=== PATIENT | male | born 1935 | race African-American/Black ===

== ENCOUNTER 2020-09-19 22:03 | Inpatient (IN) | payer MEDICARE, OTHER ==
[2020-09-19 23:02] LABS: ALT (SGPT) Less than 7 U/L (8-55); AST (SGOT) 10 U/L (5-34); Albumin 2.7 g/dL (3.4-4.8); Alkaline Phosphatase 62 U/L (40-110); Anion Gap 13 mmol/L (10-20); BUN (Urea Nitrogen) 29 mg/dL (8.4-25.7); Bilirubin, Total 0.5 mg/dL (0.2-1.2); Calc. Creatinine Clearance 0 mL/min (70-130); Calcium 8.3 mg/dL (7.8-10.44); Carbon Dioxide 29 mmol/L (23-31); Chloride 96 mmol/L (98-107); Globulin 2.5 g/dL (2.4-3.5); Glucose 108 mg/dL (83-110); Potassium 3.7 mmol/L (3.5-5.1); Protein, Total 5.2 g/dL (5.8-8.1); Sodium 134 mmol/L (136-145)
[2020-09-19 23:05] LABS: #Eosinphils 0.6 thou/uL (0.0-0.7); #Lymphocytes 1.4 thou/uL (1.20-3.40); #Monocytes 0.8 thou/uL (0.11-0.59); #Neutrophils 3.7 thou/uL (1.40-6.50); %Basophils 0.4 % (0.0-1.0); %Eosinophils 8.9 % (0.0-10.0); %Lymphocytes 21.6 % (21.0-51.0); %Monocytes 12.2 % (0.0-10.0); %Neutrophils 56.8 % (42.0-75.0); INR-International Normal Ratio 1.3; Mean Corpuscular HGB CONC 32.9 g/dL (32.0-36.0); Mean Corpuscular Hemoglobin 29.9 pg (27.0-31.0); Mean Corpuscular Volume 90.9 fL (78.0-98.0); Mean Platelet Volume 10.2 fL (7.4-10.4); Platelet Count 200 thou/uL (130-400); Prothrombin Time 16.4 sec (12.0-14.7); Red Blood Cell (RBC) Count 2.33 mill/uL (4.70-6.10); White Blood Cell (WBC) Count 6.4 thou/uL (4.8-10.8)
[2020-09-19 23:06] LABS: PTT 33.5 sec (22.9-36.1)
[2020-09-19 23:25] LABS: CKMB 0.9 ng/mL (0-6.6)
[2020-09-20 01:55] LABS: Troponin I 0.047 ng/mL (< 0.028)
[2020-09-20] MEDS ORDERED: Acetaminophen 325 MG TAB PO PRN ×2 (03:00→03:56)
[2020-09-20 03:25] VITALS: BMI 22.9
[2020-09-20] MEDS ORDERED: Ondansetron PF 4 MG/2 ML Vial IVP PRN (03:56)
[2020-09-20] MEDS ORDERED: Guaifenesin DM 100-10/5 ML UDCUP PO PRN (03:56)
[2020-09-20] MEDS ORDERED: Promethazine HCl 12.5 MG in Sodium Chloride 0.9% 50 ML IVPB PRN (03:56)
[2020-09-20] MEDS ORDERED: cloNIDine 0.1 MG TAB PO PRN (03:56)
[2020-09-20] MEDS ORDERED: Labetalol HCl 100 MG/20 ML VIAL SLOW IVP PRN (03:56)
[2020-09-20] MEDS ORDERED: HYDROcodone/Acetaminophen 5/325 mg Tablet PO PRN (03:56)
[2020-09-20] MEDS ORDERED: hydrALAZINE 20 MG/ML VIAL SLOW IVP PRN (03:56)
[2020-09-20 05:24] LABS: Troponin I 0.034 ng/mL (< 0.028)
[2020-09-20 06:34] LABS: SARS-CoV-2 NAA Rapid Test Not Detected (NotDetected)
[2020-09-20] MEDS: Carvedilol 3.125 MG TAB PO SCH ×3 (08:35→17:33)
[2020-09-20] MEDS: Famotidine 20 MG TAB PO SCH (08:35)
[2020-09-20] MEDS ORDERED: Heparin 10,000 UNITS/ 10 ML VIAL ONE (09:09)
[2020-09-20 11:17] LABS: Iron 37 ug/dL (65-175); Iron Binding Capacity, Total 195 mcg/dL (261-462)
[2020-09-20] MEDS ORDERED: traMADol HCl 50 MG TAB PO PRN (16:12)
[2020-09-20] MEDS: Docusate 100 MG CAP PO SCH (21:25)
[2020-09-20] MEDS: Gabapentin 300 MG CAP PO SCH (21:25)
[2020-09-20] MEDS: Bumetanide 1 MG TAB PO SCH (21:25)
[2020-09-20] MEDS: Atorvastatin Calcium 40 MG TAB PO SCH (21:25)
[2020-09-20] MEDS: traZODone HCl 50 MG TAB PO SCH (21:26)
[2020-09-20] MEDS: Nortriptyline 10 MG CAP PO SCH (21:33)
[2020-09-21 05:05] LABS: #Eosinphils 0.4 thou/uL (0.0-0.7); #Lymphocytes 1.1 thou/uL (1.20-3.40); #Monocytes 0.7 thou/uL (0.11-0.59); #Neutrophils 4.4 thou/uL (1.40-6.50); %Basophils 0.2 % (0.0-1.0); %Eosinophils 5.6 % (0.0-10.0); %Lymphocytes 16.7 % (21.0-51.0); %Monocytes 11.1 % (0.0-10.0); %Neutrophils 66.4 % (42.0-75.0); Hemoglobin 9.8 g/dL (14.0-18.0); Mean Corpuscular HGB CONC 34.1 g/dL (32.0-36.0); Mean Corpuscular Hemoglobin 30.8 pg (27.0-31.0); Mean Corpuscular Volume 90.5 fL (78.0-98.0); Mean Platelet Volume 10.5 fL (7.4-10.4); Platelet Count 147 thou/uL (130-400); RBC Distribution Width 14.8 % (11.5-14.5); Red Blood Cell (RBC) Count 3.16 mill/uL (4.70-6.10); White Blood Cell (WBC) Count 6.7 thou/uL (4.8-10.8)
[2020-09-21 05:24] LABS: Anion Gap 14 mmol/L (10-20); BUN (Urea Nitrogen) 21 mg/dL (8.4-25.7); Calc. Creatinine Clearance 20 mL/min (70-130); Calcium 8.6 mg/dL (7.8-10.44); Carbon Dioxide 27 mmol/L (23-31); Chloride 98 mmol/L (98-107); Glucose 89 mg/dL (83-110); Magnesium 1.6 mg/dL (1.6-2.6); Potassium 3.5 mmol/L (3.5-5.1); Sodium 135 mmol/L (136-145)
[2020-09-21] MEDS: Bumetanide 1 MG TAB PO SCH (08:52)
[2020-09-21] MEDS: Ferrous Sulfate 325 MG TAB PO SCH (08:52)
[2020-09-21] MEDS: Allopurinol 100 MG TAB PO SCH (08:53)
[2020-09-21] MEDS: Losartan 25 MG TAB PO SCH (08:53)
[2020-09-21] MEDS: Clopidogrel Bisulfate 75 MG TAB PO SCH (08:53)
[2020-09-21] MEDS: Tamsulosin HCl 0.4 MG CAP PO SCH (08:53)
[2020-09-21] MEDS: Famotidine 20 MG TAB PO SCH (08:53)
[2020-09-21] MEDS: Aspirin Chewable 81 MG TAB PO SCH (08:54)
[2020-09-21] MEDS: Carvedilol 3.125 MG TAB PO SCH ×4 (08:54→16:59)
[2020-09-21] MEDS: Loratadine 10 MG TAB PO SCH (08:54)
[2020-09-21] MEDS: Docusate 100 MG CAP PO SCH ×2 (08:54→20:51)
[2020-09-21] MEDS ORDERED: EPOETIN ALFA-EPBX (ESRD) 4,000 UNIT/ML VIAL SC SCH (12:00)
[2020-09-21] MEDS ORDERED: GoLYTELY 4,000 ml Bottle PO SCH (14:00)
[2020-09-21] MEDS: traZODone HCl 50 MG TAB PO SCH (20:49)
[2020-09-21] MEDS: Atorvastatin Calcium 40 MG TAB PO SCH (20:49)
[2020-09-21] MEDS: Gabapentin 300 MG CAP PO SCH (20:49)
[2020-09-21] MEDS: Nortriptyline 10 MG CAP PO SCH (20:49)
[2020-09-22 05:12] LABS: #Eosinphils 0.4 thou/uL (0.0-0.7); #Monocytes 0.6 thou/uL (0.11-0.59); #Neutrophils 3.9 thou/uL (1.40-6.50); %Basophils 0.6 % (0.0-1.0); %Eosinophils 6.4 % (0.0-10.0); %Lymphocytes 17.4 % (21.0-51.0); %Monocytes 9.6 % (0.0-10.0); %Neutrophils 65.9 % (42.0-75.0); Hemoglobin 9.6 g/dL (14.0-18.0); Mean Corpuscular HGB CONC 33.5 g/dL (32.0-36.0); Mean Corpuscular Hemoglobin 30.8 pg (27.0-31.0); Mean Corpuscular Volume 91.7 fL (78.0-98.0); Mean Platelet Volume 10.8 fL (7.4-10.4); Platelet Count 144 thou/uL (130-400); Red Blood Cell (RBC) Count 3.12 mill/uL (4.70-6.10); White Blood Cell (WBC) Count 5.9 thou/uL (4.8-10.8)
[2020-09-22 05:44] LABS: Anion Gap 17 mmol/L (10-20); BUN (Urea Nitrogen) 28 mg/dL (8.4-25.7); Calc. Creatinine Clearance 17 mL/min (70-130); Calcium 8.6 mg/dL (7.8-10.44); Carbon Dioxide 27 mmol/L (23-31); Chloride 97 mmol/L (98-107); Glucose 73 mg/dL (83-110); Magnesium 1.7 mg/dL (1.6-2.6); Potassium 3.6 mmol/L (3.5-5.1); Sodium 137 mmol/L (136-145)
[2020-09-22] MEDS ORDERED: Lidocaine 1% PF 5 ML VIAL ONE (10:08)
[2020-09-22] MEDS ORDERED: PROPOFOL 200 MG/20 ML VIAL ONE (10:08)
[2020-09-22] MEDS ORDERED: traMADol HCl 50 MG TAB PO PRN (10:45)
[2020-09-22] MEDS: Losartan 25 MG TAB PO SCH (13:07)
[2020-09-22] MEDS: Aspirin Chewable 81 MG TAB PO SCH (13:07)
[2020-09-22] MEDS: Famotidine 20 MG TAB PO SCH (13:07)
[2020-09-22] MEDS: Clopidogrel Bisulfate 75 MG TAB PO SCH (13:07)
[2020-09-22] MEDS: Allopurinol 100 MG TAB PO SCH (13:08)
[2020-09-22] MEDS: Carvedilol 3.125 MG TAB PO SCH (13:08)
[2020-09-22] MEDS: Ferrous Sulfate 325 MG TAB PO SCH (13:12)
[2020-09-22] MEDS: Docusate 100 MG CAP PO SCH (13:12)
[2020-09-22] MEDS: Tamsulosin HCl 0.4 MG CAP PO SCH (13:12)
[2020-09-22] MEDS: Loratadine 10 MG TAB PO SCH (13:13)
[2020-09-22 17:04] VITALS: BP 142/82; TEMP 96.8
== END 2020-09-22 17:00 | DRG 811 ==
LOC: ERS 22:03 → 2NO 09-20 00:38
PROVIDERS: ADMIT Internal Medicine; ATTEND Internal Medicine
PROC: 30233N1 Transfusion of Nonautologous Red Blood Cells into Peripheral Vein, Percutaneous Approach (ICD-10-PCS; principal; 2020-09-20)
PROC: 5A1D70Z Performance of Urinary Filtration, Intermittent, Less than 6 Hours Per Day (ICD-10-PCS; 2020-09-20)
PROC: 0DJ08ZZ Inspection of Upper Intestinal Tract, Via Natural or Artificial Opening Endoscopic (ICD-10-PCS; 2020-09-22)
PROC: 0DJD8ZZ Inspection of Lower Intestinal Tract, Via Natural or Artificial Opening Endoscopic (ICD-10-PCS; 2020-09-22)
DX: D51.9 Vitamin B12 deficiency anemia, unspecified (principal); N18.6 End stage renal disease; I13.0 Hypertensive heart and chronic kidney disease with heart failure and stage 1 through stage 4 chronic kidney disease, or unspecified chronic kidney disease; Z20.822 Contact with and (suspected) exposure to COVID-19; K57.30 Diverticulosis of large intestine without perforation or abscess without bleeding; I50.9 Heart failure, unspecified; I25.10 Atherosclerotic heart disease of native coronary artery without angina pectoris; I73.9 Peripheral vascular disease, unspecified; E78.5 Hyperlipidemia, unspecified; D63.1 Anemia in chronic kidney disease; M10.9 Gout, unspecified; Z85.46 Personal history of malignant neoplasm of prostate; Z99.2 Dependence on renal dialysis; Z88.8 Allergy status to other drugs, medicaments and biological substances; Z95.828 Presence of other vascular implants and grafts; Z79.899 Other long term (current) drug therapy; Z79.82 Long term (current) use of aspirin; Z79.02 Long term (current) use of antithrombotics/antiplatelets
CPT/HCPCS: 36415; 36430; 80048; 80053; 82553; 82728; 83540; 83550; 83735; 84484; 85025; 85610; 85730; 86850; 86900; 86901; 90935; 93005; 94760; G0257; J1644; J2704; P9016; Q5105; U0002; U0005

== ENCOUNTER 2020-10-03 17:15 | Inpatient (IN) | payer MEDICARE, OTHER ==
[2020-10-03 18:46] LABS: #Eosinphils 0.5 thou/uL (0.0-0.7); #Lymphocytes 1.1 thou/uL (1.20-3.40); #Monocytes 0.8 thou/uL (0.11-0.59); #Neutrophils 5.6 thou/uL (1.40-6.50); %Lymphocytes 13.3 % (21.0-51.0); %Monocytes 9.8 % (0.0-10.0); %Neutrophils 70.9 % (42.0-75.0); Hemoglobin 10.7 g/dL (14.0-18.0); Mean Corpuscular HGB CONC 32.5 g/dL (32.0-36.0); Mean Corpuscular Hemoglobin 30.5 pg (27.0-31.0); Mean Corpuscular Volume 93.8 fL (78.0-98.0); Platelet Count 123 thou/uL (130-400); Red Blood Cell (RBC) Count 3.51 mill/uL (4.70-6.10); White Blood Cell (WBC) Count 7.9 thou/uL (4.8-10.8)
[2020-10-03 19:10] LABS: ALT (SGPT) Less than 7 U/L (8-55); AST (SGOT) 12 U/L (5-34); Albumin 2.9 g/dL (3.4-4.8); Alkaline Phosphatase 73 U/L (40-110); Anion Gap 19 mmol/L (10-20); BUN (Urea Nitrogen) 28 mg/dL (8.4-25.7); Bilirubin, Total 0.7 mg/dL (0.2-1.2); Calc. Creatinine Clearance 0 mL/min (70-130); Calcium 8.7 mg/dL (7.8-10.44); Carbon Dioxide 24 mmol/L (23-31); Chloride 98 mmol/L (98-107); Globulin 3.2 g/dL (2.4-3.5); Glucose 127 mg/dL (83-110); Potassium 3.9 mmol/L (3.5-5.1); Protein, Total 6.1 g/dL (5.8-8.1); Sodium 137 mmol/L (136-145)
[2020-10-03 21:55] LABS: Clarity Turbid (Clear); Glucose, Urine (Dipstick) Unable to Interpret mg/dL (Negative); Leukocyte Unable to Interpret Leu/uL (Negative); Nitrite Unable to Interpret (Negative); Protein, Urine (Dipstick) Unable to Interpret mg/dL (Neg-Trace); Specific Gravity, Urine 1.016 (1.002-1.036); pH, Urine 6.6 (5.0-9.0)
[2020-10-03 21:56] LABS: Bilirubin Unable to Interpret (Negative); Blood, Urine Unable to Interpret (Negative); Ketone, Urine Unable to Interpret mg/dL (Negative); Urobilinogen UNABLE TO INTERPRET mg/dL (Less than 2)
[2020-10-03 22:00] LABS: RBC/HPF Greater than 50 HPF (0-3); Squamous Epithelial 0-3 HPF (0-3); WBC/HPF Greater than 50 HPF (0-3)
[2020-10-03 22:01] LABS: Bacteria/HPF 2+ HPF (None Seen)
[2020-10-03] MEDS ORDERED: Carvedilol 3.125 MG TAB PO SCH (23:45)
[2020-10-04] MEDS ORDERED: cefTRIAXone\\ROCEPHIN 2 GM VIAL ONE (01:28)
[2020-10-04] MEDS ORDERED: Morphine 2 MG/ML VIAL SLOW IVP PRN (01:41)
[2020-10-04] MEDS ORDERED: Acetaminophen 325 MG TAB PO PRN (01:41)
[2020-10-04] MEDS ORDERED: traMADol HCl 50 MG TAB PO PRN (01:43)
[2020-10-04] MEDS ORDERED: Bisacodyl 5 MG TAB PO PRN (01:44)
[2020-10-04] MEDS ORDERED: Ondansetron PF 4 MG/2 ML Vial IVP PRN (01:44)
[2020-10-04 02:28] LABS: Band 1 % (5-11); Eosinophils 5 % (0-10); Hemoglobin 9.6 g/dL (14.0-18.0); Lymphocytes 17 % (21-51); MDiff Complete? YES; Mean Corpuscular HGB CONC 33.2 g/dL (32.0-36.0); Mean Corpuscular Hemoglobin 30.9 pg (27.0-31.0); Mean Corpuscular Volume 93.1 fL (78.0-98.0); Mean Platelet Volume 10.7 fL (7.4-10.4); Monocytes 8 % (0-10); Neutrophil 69 % (42-75); Platelet Count 116 thou/uL (130-400); Platelet Morphology Comment Appears Decreased; RBC Distribution Width 15.7 % (11.5-14.5); Red Blood Cell (RBC) Count 3.09 mill/uL (4.70-6.10); White Blood Cell (WBC) Count 6.7 thou/uL (4.8-10.8)
[2020-10-04 02:38] VITALS: BMI 23.6
[2020-10-04 02:44] LABS: Albumin 2.8 g/dL (3.4-4.8); Anion Gap 14 mmol/L (10-20); BUN (Urea Nitrogen) 32 mg/dL (8.4-25.7); BUN/Creatinine Ratio 8.86; Calc. Creatinine Clearance 16 mL/min (70-130); Calcium 8.5 mg/dL (7.8-10.44); Carbon Dioxide 29 mmol/L (23-31); Chloride 99 mmol/L (98-107); Glucose 132 mg/dL (83-110); Phosphorus 3.7 mg/dL (2.3-4.7); Potassium 3.4 mmol/L (3.5-5.1); Sodium 139 mmol/L (136-145)
[2020-10-04] MEDS: Carvedilol 3.125 MG TAB PO SCH ×2 (08:00→17:18)
[2020-10-04] MEDS ORDERED: Heparin 10,000 UNITS/ 10 ML VIAL ONE (08:58)
[2020-10-04] MEDS ORDERED: EPOETIN ALFA-EPBX (ESRD) 10,000 UNIT/ML VIAL SC SCH (10:30)
[2020-10-04] MEDS: Ferrous Sulfate 325 MG TAB PO SCH (14:16)
[2020-10-04] MEDS: Folic Acid 1 MG TAB PO SCH (14:16)
[2020-10-04] MEDS: Docusate 100 MG CAP PO SCH ×2 (14:17→19:26)
[2020-10-04] MEDS: Losartan 25 MG TAB PO SCH (14:17)
[2020-10-04] MEDS: Tamsulosin HCl 0.4 MG CAP PO SCH (14:17)
[2020-10-04] MEDS: Bumetanide 1 MG TAB PO SCH ×2 (14:18→19:26)
[2020-10-04] MEDS: Famotidine 20 MG TAB PO SCH (14:19)
[2020-10-04] MEDS ORDERED: EPOETIN ALFA-EPBX (NON-ESRD) 10,000 UNIT/ML VIAL ONE (14:35)
[2020-10-04 15:38] LABS: Hemoglobin 10.2 g/dL (14.0-18.0)
[2020-10-04 15:44] LABS: SARS-CoV-2 PCR by NAA Not Detected (NotDetected)
[2020-10-04] MEDS: traZODone HCl 50 MG TAB PO SCH (19:26)
[2020-10-04] MEDS: Atorvastatin Calcium 40 MG TAB PO SCH (19:26)
[2020-10-05] MEDS: cefTRIAXone\\ROCEPHIN 1 GM in Sodium Chloride 0.9% 100 ML IVPB SCH (01:32)
[2020-10-05 04:45] LABS: #Eosinphils 0.5 thou/uL (0.0-0.7); #Lymphocytes 1.1 thou/uL (1.20-3.40); #Monocytes 0.6 thou/uL (0.11-0.59); #Neutrophils 3.7 thou/uL (1.40-6.50); %Basophils 0.2 % (0.0-1.0); %Eosinophils 7.8 % (0.0-10.0); %Lymphocytes 18.7 % (21.0-51.0); %Monocytes 10.1 % (0.0-10.0); %Neutrophils 63.2 % (42.0-75.0); Hemoglobin 9.7 g/dL (14.0-18.0); Mean Corpuscular HGB CONC 31.8 g/dL (32.0-36.0); Mean Corpuscular Volume 94.2 fL (78.0-98.0); Mean Platelet Volume 11.3 fL (7.4-10.4); Platelet Count 103 thou/uL (130-400); RBC Distribution Width 15.9 % (11.5-14.5); Red Blood Cell (RBC) Count 3.25 mill/uL (4.70-6.10); White Blood Cell (WBC) Count 5.8 thou/uL (4.8-10.8)
[2020-10-05 04:55] LABS: Anion Gap 16 mmol/L (10-20); BUN (Urea Nitrogen) 20 mg/dL (8.4-25.7); Calc. Creatinine Clearance 21 mL/min (70-130); Calcium 8.6 mg/dL (7.8-10.44); Carbon Dioxide 28 mmol/L (23-31); Chloride 101 mmol/L (98-107); Glucose 108 mg/dL (83-110); Potassium 3.6 mmol/L (3.5-5.1); Sodium 141 mmol/L (136-145)
[2020-10-05] MEDS: Docusate 100 MG CAP PO SCH ×2 (09:04→19:41)
[2020-10-05] MEDS: Ferrous Sulfate 325 MG TAB PO SCH (09:04)
[2020-10-05] MEDS: Bumetanide 1 MG TAB PO SCH ×2 (09:04→19:41)
[2020-10-05] MEDS: Carvedilol 3.125 MG TAB PO SCH ×2 (09:04→18:05)
[2020-10-05] MEDS: Losartan 25 MG TAB PO SCH (09:05)
[2020-10-05] MEDS: Famotidine 20 MG TAB PO SCH (09:05)
[2020-10-05] MEDS: Tamsulosin HCl 0.4 MG CAP PO SCH (09:05)
[2020-10-05] MEDS: Folic Acid 1 MG TAB PO SCH (09:05)
[2020-10-05 13:50] LABS: Hemoglobin 10.7 g/dL (14.0-18.0)
[2020-10-05] MEDS ORDERED: Bumetanide 1 MG/4 ML VIAL IVP SCH (14:45)
[2020-10-05] MEDS: traZODone HCl 50 MG TAB PO SCH (19:41)
[2020-10-05] MEDS: Atorvastatin Calcium 40 MG TAB PO SCH (19:41)
[2020-10-05 20:02] VITALS: TEMP 98.1
[2020-10-06] MEDS: cefTRIAXone\\ROCEPHIN 1 GM in Sodium Chloride 0.9% 100 ML IVPB SCH (01:06)
[2020-10-06] MEDS: Losartan 25 MG TAB PO SCH (08:42)
[2020-10-06] MEDS: Tamsulosin HCl 0.4 MG CAP PO SCH (08:43)
[2020-10-06] MEDS: Ferrous Sulfate 325 MG TAB PO SCH (08:43)
[2020-10-06] MEDS: Docusate 100 MG CAP PO SCH (08:43)
[2020-10-06] MEDS: Famotidine 20 MG TAB PO SCH (08:44)
[2020-10-06] MEDS: Bumetanide 1 MG TAB PO SCH (08:44)
[2020-10-06] MEDS: Folic Acid 1 MG TAB PO SCH (08:44)
[2020-10-06] MEDS: Carvedilol 3.125 MG TAB PO SCH (08:44)
[2020-10-06] MEDS ORDERED: Clopidogrel Bisulfate 75 MG TAB PO SCH (09:00)
[2020-10-06] MEDS ORDERED: Mecobalamin [B12 Active] 1,000 MCG Tab.Chew PO SCH (09:00)
[2020-10-06] MEDS ORDERED: Allopurinol 100 MG TAB PO SCH (09:00)
[2020-10-06] MEDS ORDERED: Loratadine 10 MG TAB PO SCH (09:00)
[2020-10-06 12:25] VITALS: BP 156/92
[2020-10-06] MEDS ORDERED: Gabapentin 300 MG CAP PO SCH (21:00)
== END 2020-10-06 15:30 | DRG 698 ==
LOC: ERS 17:15 → ONC 10-04 01:02
PROVIDERS: ADMIT Internal Medicine; ATTEND Hospitalist
PROC: 5A1D70Z Performance of Urinary Filtration, Intermittent, Less than 6 Hours Per Day (ICD-10-PCS; principal; 2020-10-04)
DX: N30.41 Irradiation cystitis with hematuria (principal); N18.6 End stage renal disease; J90 Pleural effusion, not elsewhere classified; I12.0 Hypertensive chronic kidney disease with stage 5 chronic kidney disease or end stage renal disease; E78.5 Hyperlipidemia, unspecified; I25.10 Atherosclerotic heart disease of native coronary artery without angina pectoris; D63.1 Anemia in chronic kidney disease; I73.9 Peripheral vascular disease, unspecified; Z88.8 Allergy status to other drugs, medicaments and biological substances; Z86.73 Personal history of transient ischemic attack (TIA), and cerebral infarction without residual deficits; Z79.82 Long term (current) use of aspirin; Z79.899 Other long term (current) drug therapy
CPT/HCPCS: 36415; 71045; 74176; 80048; 80053; 80069; 81003; 81015; 83605; 85014; 85018; 85025; 87040; 87086; 87149; 90935; 96374; G0257; J0696; J1644; J3490; Q5105; U0003; U0005

== ENCOUNTER 2021-01-01 10:42 | Inpatient (IN) | payer MEDICARE, OTHER ==
[~2021-01-01 10:42] MED LIST: Heparin 10,000 UNITS/ 10 ML VIAL ONE
[2021-01-01] MEDS ORDERED: Propofol 1,000 MG/100 ML VIAL IV ONE (11:00)
[2021-01-01] MEDS ORDERED: PROPOFOL 0 ML ONE (11:00)
[2021-01-01 11:13] LABS: #Eosinphils 0.5 thou/uL (0.0-0.7); #Monocytes 0.6 thou/uL (0.11-0.59); #Neutrophils 3.1 thou/uL (1.40-6.50); %Basophils 0.6 % (0.0-1.0); %Eosinophils 9.1 % (0.0-10.0); %Lymphocytes 19.2 % (21.0-51.0); %Monocytes 10.8 % (0.0-10.0); %Neutrophils 60.3 % (42.0-75.0); Hemoglobin 10.9 g/dL (14.0-18.0); Mean Corpuscular HGB CONC 32.4 g/dL (32.0-36.0); Mean Corpuscular Hemoglobin 31.6 pg (27.0-31.0); Mean Corpuscular Volume 97.4 fL (78.0-98.0); Mean Platelet Volume 10.5 fL (7.4-10.4); Platelet Count 90 thou/uL (130-400); RBC Distribution Width 14.6 % (11.5-14.5); Red Blood Cell (RBC) Count 3.46 mill/uL (4.70-6.10); White Blood Cell (WBC) Count 5.2 thou/uL (4.8-10.8)
[2021-01-01] MEDS ORDERED: fentaNYL Citrate/PF 2,000 MCG in Sodium Chloride 0.9% 60 ML IV SCH (11:15)
[2021-01-01 11:21] LABS: Analyzer IN Cardio ER; Base Excess (BEa) -3.5 mEq/L (-2.0 to +3.0); CO2 Tension 36.1 mmHg (35.0-45.0); Calcium, Ionized (arterial) 1.09 mmol/L (1.12-1.30); Carboxyhemoglobin (COHb) 0.3 gm% (0.0-3.0); Hemoglobin (Hb) 11.4 g/dL (14.0-18.0); O2 Tension (PaO2), arterial 469.8 mmHg (> 60.0); Potassium - ABG Lab 3.89 mmol/L (3.70-5.30); pH, Arterial 7.38 (7.35-7.45)
[2021-01-01 11:22] LABS: ALV-art Gradient 198.075 mmHg (0-20); Puncture Site RRA
[2021-01-01 11:29] LABS: INR-International Normal Ratio 1.5; Prothrombin Time 18.4 sec (12.0-14.7)
[2021-01-01 11:30] LABS: PTT 63.7 sec (22.9-36.1)
[2021-01-01 11:35] LABS: Bilirubin Negative (Negative); Blood, Urine 1+ (Negative); Clarity Extra Turbid (Clear); Glucose, Urine (Dipstick) Normal (Negative); Ketone, Urine Negative (Negative); Leukocyte 500 Leu/uL (Negative); Nitrite Negative (Negative); Protein, Urine (Dipstick) 300 mg/dL (Neg-Trace); Specific Gravity, Urine 1.014 (1.002-1.036); Urobilinogen Normal mg/dL (Less than 2); pH, Urine 5.5 (5.0-9.0)
[2021-01-01 11:43] LABS: Bacteria/HPF 1+ HPF (None Seen); WBC/HPF 21-50 HPF (0-3)
[2021-01-01 11:54] LABS: CKMB 1.7 ng/mL (0-6.6)
[2021-01-01 12:04] LABS: Albumin 2.5 g/dL (3.4-4.8)
[2021-01-01 12:05] LABS: Chloride 106 mmol/L (98-107); Potassium 4.2 mmol/L (3.5-5.1); Sodium 143 mmol/L (136-145)
[2021-01-01 12:06] LABS: Calcium 8.3 mg/dL (7.8-10.44); Globulin 2.4 g/dL (2.4-3.5); Glucose 78 mg/dL (83-110); Protein, Total 4.9 g/dL (5.8-8.1)
[2021-01-01 12:08] LABS: Anion Gap 20 mmol/L (10-20); Bilirubin, Total 0.5 mg/dL (0.2-1.2); Carbon Dioxide 21 mmol/L (23-31)
[2021-01-01] MEDS ORDERED: cefTRIAXone\\ROCEPHIN 2 GM VIAL ONE (12:08)
[2021-01-01 12:09] LABS: Alkaline Phosphatase 50 U/L (40-110)
[2021-01-01 12:10] LABS: BUN (Urea Nitrogen) 91 mg/dL (8.4-25.7); Calc. Creatinine Clearance 0 mL/min (70-130)
[2021-01-01 12:11] LABS: AST (SGOT) 5 U/L (5-34)
[2021-01-01 12:12] LABS: ALT (SGPT) Less than 7 U/L (8-55)
[2021-01-01 12:13] LABS: SARS-CoV-2 NAA Rapid Test Not Detected (NotDetected)
[2021-01-01] MEDS ORDERED: Ondansetron PF 4 MG/2 ML Vial IVP PRN (14:05)
[2021-01-01] MEDS ORDERED: Ventilator Sedation Protocol 1 EACH FS PRN (14:15)
[2021-01-01 14:32] LABS: Troponin I 0.027 ng/mL (< 0.028)
[2021-01-01] MEDS ORDERED: Midazolam HCl 2 mg/2 ml Vial ONE (14:40)
[2021-01-01] MEDS ORDERED: Propofol BOLUS 1,000 MG/100 ML VIAL IV PRN (14:45)
[2021-01-01] MEDS ORDERED: Fentanyl CADD 100 ML IV SCH (14:45)
[2021-01-01] MEDS ORDERED: Fentanyl BOLUS 250 ML IVPB PRN (14:45)
[2021-01-01] MEDS ORDERED: Lorazepam 2 MG/ML VIAL SLOW IVP PRN (14:45)
[2021-01-01] MEDS ORDERED: Morphine 2 MG/ML VIAL SLOW IVP PRN (14:45)
[2021-01-01] MEDS ORDERED: DISCONTINUE PREVIOUS NARCOTIC PAIN MEDICATIONS AND BENZODIAZEPINES FS SCH (14:45)
[2021-01-01] MEDS ORDERED: Propofol 1,000 MG/100 ML VIAL IV PRN (14:45)
[2021-01-01] MEDS ORDERED: Ondansetron ODT 4 MG TAB PO PRN (17:13)
[2021-01-01] MEDS ORDERED: Acetaminophen 325 MG TAB PO PRN (17:15)
[2021-01-01 17:22] LABS: Troponin I 0.053 ng/mL (< 0.028)
[2021-01-01] MEDS: Atorvastatin Calcium 40 MG TAB PO SCH (21:29)
[2021-01-01] MEDS: Famotidine/PF 20 mg/2ml Vial SLOW IVP SCH (21:29)
[2021-01-01] MEDS: Carvedilol 3.125 MG TAB PO SCH (21:29)
[2021-01-01] MEDS: metroNIDAZOLE 500 MG in Premix Bag 1 BAG IVPB SCH (21:30)
[2021-01-02 04:16] LABS: #Eosinphils 0.2 thou/uL (0.0-0.7); #Lymphocytes 0.9 thou/uL (1.20-3.40); #Monocytes 0.6 thou/uL (0.11-0.59); #Neutrophils 5.1 thou/uL (1.40-6.50); %Basophils 0.4 % (0.0-1.0); %Eosinophils 2.6 % (0.0-10.0); %Lymphocytes 13.3 % (21.0-51.0); %Monocytes 8.3 % (0.0-10.0); %Neutrophils 75.4 % (42.0-75.0); Hemoglobin 13.7 g/dL (14.0-18.0); Mean Corpuscular HGB CONC 33.7 g/dL (32.0-36.0); Mean Corpuscular Hemoglobin 31.6 pg (27.0-31.0); Mean Corpuscular Volume 93.9 fL (78.0-98.0); Platelet Count 92 thou/uL (130-400); RBC Distribution Width 15.2 % (11.5-14.5); Red Blood Cell (RBC) Count 4.32 mill/uL (4.70-6.10); White Blood Cell (WBC) Count 6.7 thou/uL (4.8-10.8)
[2021-01-02 04:23] LABS: ALT (SGPT) Less than 7 U/L (8-55); AST (SGOT) 7 U/L (5-34); Albumin 2.8 g/dL (3.4-4.8); Alkaline Phosphatase 65 U/L (40-110); Anion Gap 21 mmol/L (10-20); BUN (Urea Nitrogen) 54 mg/dL (8.4-25.7); Bilirubin, Total 0.8 mg/dL (0.2-1.2); Calc. Creatinine Clearance 10 mL/min (70-130); Carbon Dioxide 23 mmol/L (23-31); Chloride 102 mmol/L (98-107); Globulin 2.9 g/dL (2.4-3.5); Glucose 69 mg/dL (83-110); Phosphorus 5.9 mg/dL (2.3-4.7); Potassium 3.6 mmol/L (3.5-5.1); Protein, Total 5.7 g/dL (5.8-8.1); Sodium 142 mmol/L (136-145)
[2021-01-02] MEDS: metroNIDAZOLE 500 MG in Premix Bag 1 BAG IVPB SCH ×3 (06:19→22:36)
[2021-01-02 07:14] LABS: Actual Bicarbonate (HCO3a) 20.8 mEq/L (22-28); Base Excess (BEa) 0.4 mEq/L (-2.0 to +3.0); Carboxyhemoglobin (COHb) 0.6 gm% (0.0-3.0); Hemoglobin (Hb) 13.5 g/dL (14.0-18.0); O2 Tension (PaO2), arterial 131.1 mmHg (> 60.0); Potassium - ABG Lab 3.36 mmol/L (3.70-5.30)
[2021-01-02 07:15] LABS: ALV-art Gradient 124.725 mmHg (0-20); CO2 Tension 23.5 mmHg (35.0-45.0); Puncture Site RRA; pH, Arterial 7.57 (7.35-7.45)
[2021-01-02] MEDS: Heparin 5,000 UNITS/ML VIAL SC SCH ×4 (07:26→21:40)
[2021-01-02] MEDS: cefTRIAXone\\ROCEPHIN 1 GM in Sodium Chloride 0.9% 100 ML IVPB SCH (07:52)
[2021-01-02] MEDS: Carvedilol 3.125 MG TAB PO SCH ×2 (08:44→21:40)
[2021-01-02] MEDS: Aspirin Chewable 81 MG TAB PO SCH (08:44)
[2021-01-02] MEDS: Famotidine/PF 20 mg/2ml Vial SLOW IVP SCH (08:44)
[2021-01-02] MEDS: Folic Acid 1 MG TAB PO SCH (08:44)
[2021-01-02] MEDS: Allopurinol 100 MG TAB PO SCH (08:44)
[2021-01-02] MEDS: Clopidogrel Bisulfate 75 MG TAB PO SCH (08:44)
[2021-01-02] MEDS ORDERED: Heparin 10,000 UNITS/ 10 ML VIAL ONE (09:30)
[2021-01-02] MEDS: Atorvastatin Calcium 40 MG TAB PO SCH (21:40)
[2021-01-03] MEDS: cefTRIAXone\\ROCEPHIN 1 GM in Sodium Chloride 0.9% 100 ML IVPB SCH (07:15)
[2021-01-03 08:25] LABS: #Eosinphils 0.3 thou/uL (0.0-0.7); #Lymphocytes 0.9 thou/uL (1.20-3.40); #Monocytes 0.8 thou/uL (0.11-0.59); #Neutrophils 4.4 thou/uL (1.40-6.50); %Basophils 0.2 % (0.0-1.0); %Lymphocytes 14.1 % (21.0-51.0); %Neutrophils 68.7 % (42.0-75.0); Hemoglobin 14.8 g/dL (14.0-18.0); Mean Corpuscular HGB CONC 32.1 g/dL (32.0-36.0); Mean Corpuscular Hemoglobin 30.7 pg (27.0-31.0); Mean Corpuscular Volume 95.8 fL (78.0-98.0); Mean Platelet Volume 11.3 fL (7.4-10.4); Platelet Count 78 thou/uL (130-400); RBC Distribution Width 14.7 % (11.5-14.5); White Blood Cell (WBC) Count 6.4 thou/uL (4.8-10.8)
[2021-01-03 08:37] LABS: ALT (SGPT) Less than 7 U/L (8-55); AST (SGOT) 8 U/L (5-34); Albumin 2.6 g/dL (3.4-4.8); Alkaline Phosphatase 67 U/L (40-110); Anion Gap 19 mmol/L (10-20); BUN (Urea Nitrogen) 39 mg/dL (8.4-25.7); Bilirubin, Total 0.8 mg/dL (0.2-1.2); Calc. Creatinine Clearance 12 mL/min (70-130); Calcium 8.6 mg/dL (7.8-10.44); Carbon Dioxide 23 mmol/L (23-31); Chloride 102 mmol/L (98-107); Globulin 2.9 g/dL (2.4-3.5); Glucose 76 mg/dL (83-110); Phosphorus 6.8 mg/dL (2.3-4.7); Potassium 4.2 mmol/L (3.5-5.1); Protein, Total 5.5 g/dL (5.8-8.1); Sodium 140 mmol/L (136-145)
[2021-01-03] MEDS: Heparin 5,000 UNITS/ML VIAL SC SCH ×3 (08:56→20:21)
[2021-01-03] MEDS: Aspirin Chewable 81 MG TAB PO SCH (08:57)
[2021-01-03] MEDS: Clopidogrel Bisulfate 75 MG TAB PO SCH (08:57)
[2021-01-03] MEDS: Carvedilol 3.125 MG TAB PO SCH ×2 (08:57→20:21)
[2021-01-03] MEDS: Allopurinol 100 MG TAB PO SCH (08:57)
[2021-01-03] MEDS: Folic Acid 1 MG TAB PO SCH (08:57)
[2021-01-03] MEDS: Famotidine/PF 20 mg/2ml Vial SLOW IVP SCH (08:57)
[2021-01-03] MEDS: metroNIDAZOLE 500 MG in Premix Bag 1 BAG IVPB SCH ×3 (08:58→21:01)
[2021-01-03] MEDS ORDERED: Heparin 10,000 UNITS/ 10 ML VIAL ONE (09:25)
[2021-01-03 11:37] VITALS: BP 169/83
[2021-01-03] MEDS: Atorvastatin Calcium 40 MG TAB PO SCH (20:21)
[2021-01-04 06:09] LABS: #Eosinphils 0.2 thou/uL (0.0-0.7); #Lymphocytes 0.9 thou/uL (1.20-3.40); #Monocytes 0.8 thou/uL (0.11-0.59); #Neutrophils 4.9 thou/uL (1.40-6.50); %Eosinophils 3.4 % (0.0-10.0); %Monocytes 11.7 % (0.0-10.0); Mean Corpuscular HGB CONC 32.2 g/dL (32.0-36.0); Mean Corpuscular Hemoglobin 31.1 pg (27.0-31.0); Mean Corpuscular Volume 96.4 fL (78.0-98.0); Platelet Count 88 thou/uL (130-400); RBC Distribution Width 14.5 % (11.5-14.5); Red Blood Cell (RBC) Count 4.19 mill/uL (4.70-6.10); White Blood Cell (WBC) Count 6.8 thou/uL (4.8-10.8)
[2021-01-04] MEDS: metroNIDAZOLE 500 MG in Premix Bag 1 BAG IVPB SCH ×2 (06:17→14:25)
[2021-01-04 06:29] LABS: ALT (SGPT) Less than 7 U/L (8-55); AST (SGOT) 13 U/L (5-34); Albumin 2.9 g/dL (3.4-4.8); Alkaline Phosphatase 62 U/L (40-110); Anion Gap 18 mmol/L (10-20); BUN (Urea Nitrogen) 27 mg/dL (8.4-25.7); Calc. Creatinine Clearance 14 mL/min (70-130); Carbon Dioxide 24 mmol/L (23-31); Chloride 103 mmol/L (98-107); Globulin 3.2 g/dL (2.4-3.5); Glucose 70 mg/dL (83-110); Phosphorus 5.7 mg/dL (2.3-4.7); Potassium 4.1 mmol/L (3.5-5.1); Protein, Total 6.1 g/dL (5.8-8.1); Sodium 141 mmol/L (136-145)
[2021-01-04] MEDS: cefTRIAXone\\ROCEPHIN 1 GM in Sodium Chloride 0.9% 100 ML IVPB SCH (07:17)
[2021-01-04] MEDS ORDERED: Ferrous Sulfate 325 MG TAB PO SCH (08:00)
[2021-01-04] MEDS: Allopurinol 100 MG TAB PO SCH (08:41)
[2021-01-04] MEDS: Clopidogrel Bisulfate 75 MG TAB PO SCH (08:41)
[2021-01-04] MEDS: Aspirin Chewable 81 MG TAB PO SCH (08:41)
[2021-01-04] MEDS: Folic Acid 1 MG TAB PO SCH (08:42)
[2021-01-04] MEDS: Heparin 5,000 UNITS/ML VIAL SC SCH ×2 (08:42→14:25)
[2021-01-04] MEDS: Famotidine/PF 20 mg/2ml Vial SLOW IVP SCH (08:42)
[2021-01-04] MEDS: Carvedilol 3.125 MG TAB PO SCH (08:42)
[2021-01-04] MEDS ORDERED: Fluticasone Propionate Nasal Spray 16 gm Bottle NASAL SCH (09:00)
[2021-01-04] MEDS ORDERED: Cyanocobalamin (Vitamin B-12) 1,000 MCG TAB PO SCH (09:00)
[2021-01-04 16:26] VITALS: TEMP 98.2
== END 2021-01-04 16:45 | DRG 208 ==
LOC: ERS 10:42 → ERHOLD 12:31 → CCU 15:07
PROVIDERS: ADMIT Internal Medicine; ATTEND Family Medicine
PROC: 5A1945Z Respiratory Ventilation, 24-96 Consecutive Hours (ICD-10-PCS; principal; 2021-01-01)
PROC: 0D9670Z Drainage of Stomach with Drainage Device, Via Natural or Artificial Opening (ICD-10-PCS; 2021-01-01)
PROC: 5A1D70Z Performance of Urinary Filtration, Intermittent, Less than 6 Hours Per Day (ICD-10-PCS; 2021-01-01)
DX: J96.01 Acute respiratory failure with hypoxia (principal); N18.6 End stage renal disease; G92.8 Other toxic encephalopathy; I42.9 Cardiomyopathy, unspecified; I13.2 Hypertensive heart and chronic kidney disease with heart failure and with stage 5 chronic kidney disease, or end stage renal disease; N30.00 Acute cystitis without hematuria; E87.70 Fluid overload, unspecified; Z20.822 Contact with and (suspected) exposure to COVID-19; I25.10 Atherosclerotic heart disease of native coronary artery without angina pectoris; I73.9 Peripheral vascular disease, unspecified; R94.31 Abnormal electrocardiogram [ECG] [EKG]; C61 Malignant neoplasm of prostate; I50.9 Heart failure, unspecified; E78.5 Hyperlipidemia, unspecified; D63.1 Anemia in chronic kidney disease; T40.415A Adverse effect of fentanyl or fentanyl analogs, initial encounter; T42.4X5A Adverse effect of benzodiazepines, initial encounter; L89.152 Pressure ulcer of sacral region, stage 2; E83.39 Other disorders of phosphorus metabolism; Z88.8 Allergy status to other drugs, medicaments and biological substances; Z78.1 Physical restraint status; Z98.890 Other specified postprocedural states; Z79.82 Long term (current) use of aspirin; Z79.899 Other long term (current) drug therapy; Z79.01 Long term (current) use of anticoagulants; Z99.2 Dependence on renal dialysis; Z86.73 Personal history of transient ischemic attack (TIA), and cerebral infarction without residual deficits
CPT/HCPCS: 0240U; 31500; 36415; 36600; 51702; 71045; 71046; 80053; 81003; 81015; 82553; 82805; 83605; 83735; 84100; 84484; 85025; 85610; 85730; 87086; 90935; 93005; 93306; 94002; 94003; 96365; 96366; 96375; 99292; G0257; J0696; J1644; J2250; J2704; J3010; J3490; S0028

== ENCOUNTER 2021-01-13 11:25 | Inpatient (IN) | payer MEDICARE, OTHER ==
[2021-01-13 12:54] LABS: #Eosinphils 0.3 thou/uL (0.0-0.7); #Lymphocytes 0.6 thou/uL (1.20-3.40); #Monocytes 0.6 thou/uL (0.11-0.59); #Neutrophils 2.3 thou/uL (1.40-6.50); %Basophils 0.3 % (0.0-1.0); %Eosinophils 8.5 % (0.0-10.0); %Lymphocytes 14.6 % (21.0-51.0); %Monocytes 14.8 % (0.0-10.0); %Neutrophils 61.8 % (42.0-75.0); Hemoglobin 10.5 g/dL (14.0-18.0); Mean Corpuscular HGB CONC 32.4 g/dL (32.0-36.0); Mean Corpuscular Hemoglobin 31.2 pg (27.0-31.0); Mean Corpuscular Volume 96.2 fL (78.0-98.0); Mean Platelet Volume 11.3 fL (7.4-10.4); Platelet Count 94 thou/uL (130-400); Red Blood Cell (RBC) Count 3.37 mill/uL (4.70-6.10); White Blood Cell (WBC) Count 3.7 thou/uL (4.8-10.8)
[2021-01-13 13:08] LABS: ALT (SGPT) Less than 7 U/L (8-55); AST (SGOT) 6 U/L (5-34); Albumin 2.3 g/dL (3.4-4.8); Alkaline Phosphatase 49 U/L (40-110); Anion Gap 10 mmol/L (10-20); BUN (Urea Nitrogen) 12 mg/dL (8.4-25.7); Bilirubin, Total 1.1 mg/dL (0.2-1.2); CK (CPK) 32 U/L (30-200); Calc. Creatinine Clearance 0 mL/min (70-130); Calcium 6.6 mg/dL (7.8-10.44); Carbon Dioxide 24 mmol/L (23-31); Chloride 108 mmol/L (98-107); Globulin 2.2 g/dL (2.4-3.5); Glucose 86 mg/dL (83-110); Protein, Total 4.5 g/dL (5.8-8.1); Sodium 139 mmol/L (136-145)
[2021-01-13 13:15] LABS: Potassium 2.6 mmol/L (3.5-5.1)
[2021-01-13 13:46] LABS: CKMB 1.3 ng/mL (0-6.6)
[2021-01-13 13:58] LABS: Bilirubin Negative (Negative); Blood, Urine 3+ (Negative); Clarity Turbid (Clear); Glucose, Urine (Dipstick) 70 mg/dL (Negative); Ketone, Urine Negative (Negative); Leukocyte 250 Leu/uL (Negative); Nitrite Negative (Negative); Protein, Urine (Dipstick) 600 mg/dL (Neg-Trace); RBC/HPF Greater than 50 HPF (0-3); Specific Gravity, Urine 1.018 (1.002-1.036); Urobilinogen Normal mg/dL (Less than 2); WBC/HPF Greater than 50 HPF (0-3)
[2021-01-13 13:59] LABS: Bacteria/HPF 1+ HPF (None Seen)
[2021-01-13] MEDS ORDERED: Potassium Chloride 20 MEQ TAB ONE (17:24)
[2021-01-13] MEDS ORDERED: Magnesium 2 GM/50 ML BAG (IN WATER) ONE (17:24)
[2021-01-13] MEDS ORDERED: cefTRIAXone\\ROCEPHIN 2 GM VIAL ONE (17:24)
[2021-01-13] MEDS ORDERED: HYDROcodone/Acetaminophen 7.5/325 mg Tablet PO PRN (17:54)
[2021-01-13] MEDS ORDERED: Senokot S 8.6-50 MG TAB PO PRN (17:54)
[2021-01-13] MEDS ORDERED: Acetaminophen 325 MG TAB PO PRN (17:54)
[2021-01-13] MEDS ORDERED: Ondansetron PF 4 MG/2 ML Vial IVP PRN (17:54)
[2021-01-13] MEDS ORDERED: Bisacodyl 5 MG TAB PO PRN (17:54)
[2021-01-13 18:02] LABS: Magnesium 1.8 mg/dL (1.6-2.6)
[2021-01-13 18:09] LABS: Troponin I 0.052 ng/mL (< 0.028)
[2021-01-13] MEDS ORDERED: Electrolyte Replacement Protocol 1 EACH FS SCH (18:15)
[2021-01-13] MEDS ORDERED: Electrolyte Replacement Protocol FS PRN (20:00)
[2021-01-13] MEDS ORDERED: Famotidine/PF 20 mg/2ml Vial ONE (20:57)
[2021-01-13 20:59] LABS: Troponin I 0.056 ng/mL (< 0.028)
[2021-01-13] MEDS: Heparin 5,000 UNITS/ML VIAL SC SCH (21:02)
[2021-01-13] MEDS: Famotidine/PF 20 mg/2ml Vial SLOW IVP SCH (21:02)
[2021-01-14 02:14] LABS: Anion Gap 17 mmol/L (10-20); BUN (Urea Nitrogen) 24 mg/dL (8.4-25.7); Calc. Creatinine Clearance 0 mL/min (70-130); Calcium 9.1 mg/dL (7.8-10.44); Carbon Dioxide 25 mmol/L (23-31); Chloride 99 mmol/L (98-107); Glucose 90 mg/dL (83-110); Potassium 3.9 mmol/L (3.5-5.1); Sodium 137 mmol/L (136-145)
[2021-01-14 06:22] LABS: ALT (SGPT) Less than 7 U/L (8-55); AST (SGOT) 9 U/L (5-34); Albumin 3.2 g/dL (3.4-4.8); Alkaline Phosphatase 65 U/L (40-110); Anion Gap 20 mmol/L (10-20); BUN (Urea Nitrogen) 24 mg/dL (8.4-25.7); Bilirubin, Total 1.2 mg/dL (0.2-1.2); Calc. Creatinine Clearance 0 mL/min (70-130); Calcium 9.1 mg/dL (7.8-10.44); Carbon Dioxide 21 mmol/L (23-31); Chloride 100 mmol/L (98-107); Globulin 3.1 g/dL (2.4-3.5); Glucose 94 mg/dL (83-110); Potassium 4.1 mmol/L (3.5-5.1); Protein, Total 6.3 g/dL (5.8-8.1); Sodium 137 mmol/L (136-145)
[2021-01-14] MEDS: Heparin 5,000 UNITS/ML VIAL SC SCH ×2 (08:21→21:51)
[2021-01-14] MEDS ORDERED: Clopidogrel Bisulfate 75 MG TAB PO SCH (10:00)
[2021-01-14] MEDS ORDERED: Aspirin 81 mg Enteric Coated Tablet PO SCH (10:00)
[2021-01-14 11:31] LABS: Hemoglobin 12.9 g/dL (14.0-18.0); Mean Corpuscular HGB CONC 32.9 g/dL (32.0-36.0); Mean Corpuscular Hemoglobin 31.9 pg (27.0-31.0); Mean Corpuscular Volume 96.8 fL (78.0-98.0); Mean Platelet Volume 12.1 fL (7.4-10.4); Platelet Count 98 thou/uL (130-400); RBC Distribution Width 14.4 % (11.5-14.5); Red Blood Cell (RBC) Count 4.03 mill/uL (4.70-6.10)
[2021-01-14 11:32] LABS: Lactic Acid 1.6 mmol/L (0.5-2.2)
[2021-01-14 11:53] LABS: #Eosinphils 0.1 thou/uL (0.0-0.7); #Monocytes 0.7 thou/uL (0.11-0.59); #Neutrophils 4.2 thou/uL (1.40-6.50); %Basophils 0.2 % (0.0-1.0); %Lymphocytes 15.9 % (21.0-51.0); %Monocytes 11.4 % (0.0-10.0); %Neutrophils 70.5 % (42.0-75.0); Band 1 % (5-11); Lymphocytes 14 % (21-51); MDiff Complete? YES; Monocytes 13 % (0-10); Neutrophil 72 % (42-75); Platelet Morphology Comment Appears Decreased; RBC Morphology Normal
[2021-01-14 12:43] VITALS: BMI 19.0
[2021-01-14] MEDS: Azithromycin 500 MG in Sodium Chloride 0.9% 250 ML 250 ML IVPB SCH ×2 (13:53→17:26)
[2021-01-14] MEDS ORDERED: cefTRIAXone\\ROCEPHIN 2 GM in Sodium Chloride 0.9% 100 ML IVPB SCH (16:00)
[2021-01-14] MEDS: Famotidine/PF 20 mg/2ml Vial SLOW IVP SCH (21:50)
[2021-01-14] MEDS: Atorvastatin Calcium 40 MG TAB PO SCH (21:50)
[2021-01-14 23:43] LABS: SARS-CoV-2 PCR by NAA Not Detected (NotDetected)
[2021-01-15] MEDS ORDERED: cefTRIAXone\\ROCEPHIN 2 GM VIAL IM SCH ×2 (06:00)
[2021-01-15] MEDS ORDERED: FLU VACC QS2021-22(65YR UP)/PF 240 MCG/0.7 ML SYRINGE IM ONE (09:00)
[2021-01-15] MEDS: HYDROcodone/Acetaminophen 5/325 mg Tablet PO PRN ×2 (10:39→16:10)
[2021-01-15] MEDS ORDERED: Heparin 10,000 UNITS/ 10 ML VIAL ONE (14:15)
[2021-01-15] MEDS: Allopurinol 100 MG TAB PO SCH (16:09)
[2021-01-15] MEDS: Clopidogrel Bisulfate 75 MG TAB PO SCH (16:09)
[2021-01-15] MEDS: Aspirin Chewable 81 MG TAB PO SCH (16:10)
[2021-01-15] MEDS: Azithromycin 250 MG TAB PO SCH (16:10)
[2021-01-15] MEDS: Tamsulosin HCl 0.4 MG CAP PO SCH (16:10)
[2021-01-15] MEDS: Heparin 5,000 UNITS/ML VIAL SC SCH ×2 (16:24→20:23)
[2021-01-15 17:26] LABS: RBC Count-Automated (BF) 237 /cu.mm; WBC/Nucleated-Auto (BF) 40 uL
[2021-01-15 17:47] LABS: Fluid, Protein 2.1 g/dL (Not Available)
[2021-01-15 18:10] LABS: Body Fluid Source Pleural Fluid; Tube # EDTA
[2021-01-15 18:11] LABS: BF Color Yellow; Clarity Clear (Clear)
[2021-01-15 18:23] LABS: BF Segmented Neutrophils 7 %; Cell Count Non Hematic 77 %; Lymphocytes 16 %
[2021-01-15] MEDS: Atorvastatin Calcium 40 MG TAB PO SCH (20:23)
[2021-01-15] MEDS: Famotidine/PF 20 mg/2ml Vial SLOW IVP SCH (20:23)
[2021-01-16] MEDS: Azithromycin 250 MG TAB PO SCH (09:15)
[2021-01-16] MEDS: Clopidogrel Bisulfate 75 MG TAB PO SCH (09:16)
[2021-01-16] MEDS: Tamsulosin HCl 0.4 MG CAP PO SCH (09:16)
[2021-01-16] MEDS: Aspirin Chewable 81 MG TAB PO SCH (09:16)
[2021-01-16] MEDS: Allopurinol 100 MG TAB PO SCH (09:16)
[2021-01-16] MEDS: Heparin 5,000 UNITS/ML VIAL SC SCH (10:59)
[2021-01-16] MEDS: Carvedilol 3.125 MG TAB PO SCH (20:51)
[2021-01-16] MEDS: Atorvastatin Calcium 40 MG TAB PO SCH (20:51)
[2021-01-16] MEDS: Famotidine/PF 20 mg/2ml Vial SLOW IVP SCH (20:51)
[2021-01-17 04:58] LABS: #Eosinphils 0.2 thou/uL (0.0-0.7); #Lymphocytes 0.9 thou/uL (1.20-3.40); #Monocytes 0.7 thou/uL (0.11-0.59); #Neutrophils 3.3 thou/uL (1.40-6.50); %Basophils 0.4 % (0.0-1.0); %Eosinophils 4.7 % (0.0-10.0); %Lymphocytes 17.1 % (21.0-51.0); %Monocytes 12.9 % (0.0-10.0); Hemoglobin 11.7 g/dL (14.0-18.0); Mean Corpuscular HGB CONC 34.9 g/dL (32.0-36.0); Mean Corpuscular Hemoglobin 33.6 pg (27.0-31.0); Mean Corpuscular Volume 96.3 fL (78.0-98.0); Mean Platelet Volume 11.7 fL (7.4-10.4); Platelet Count 100 thou/uL (130-400); RBC Distribution Width 14.3 % (11.5-14.5); Red Blood Cell (RBC) Count 3.49 mill/uL (4.70-6.10)
[2021-01-17 05:09] LABS: Anion Gap 17 mmol/L (10-20); BUN (Urea Nitrogen) 34 mg/dL (8.4-25.7); Calc. Creatinine Clearance 10 mL/min (70-130); Calcium 8.9 mg/dL (7.8-10.44); Carbon Dioxide 22 mmol/L (23-31); Chloride 101 mmol/L (98-107); Glucose 85 mg/dL (83-110); Potassium 3.9 mmol/L (3.5-5.1); Sodium 136 mmol/L (136-145)
[2021-01-17] MEDS: Carvedilol 3.125 MG TAB PO SCH ×2 (10:03→20:49)
[2021-01-17] MEDS: Aspirin Chewable 81 MG TAB PO SCH (13:37)
[2021-01-17] MEDS: Azithromycin 250 MG TAB PO SCH (13:37)
[2021-01-17] MEDS: Clopidogrel Bisulfate 75 MG TAB PO SCH (13:38)
[2021-01-17] MEDS: Tamsulosin HCl 0.4 MG CAP PO SCH (13:38)
[2021-01-17] MEDS: Allopurinol 100 MG TAB PO SCH (13:39)
[2021-01-17] MEDS ORDERED: Heparin 10,000 UNITS/ 10 ML VIAL ONE (14:22)
[2021-01-17] MEDS: Atorvastatin Calcium 40 MG TAB PO SCH (20:49)
[2021-01-17] MEDS: Famotidine/PF 20 mg/2ml Vial SLOW IVP SCH (20:50)
[2021-01-18 07:11] LABS: Anion Gap 18 mmol/L (10-20); BUN (Urea Nitrogen) 21 mg/dL (8.4-25.7); Calc. Creatinine Clearance 13 mL/min (70-130); Calcium 9.1 mg/dL (7.8-10.44); Carbon Dioxide 25 mmol/L (23-31); Chloride 101 mmol/L (98-107); Glucose 86 mg/dL (83-110); Potassium 4.1 mmol/L (3.5-5.1); Sodium 140 mmol/L (136-145)
[2021-01-18 07:26] LABS: #Basophils 0.1 thou/uL (0.0-0.2); #Eosinphils 0.3 thou/uL (0.0-0.7); #Monocytes 0.8 thou/uL (0.11-0.59); #Neutrophils 3.6 thou/uL (1.40-6.50); %Eosinophils 4.9 % (0.0-10.0); %Lymphocytes 18.2 % (21.0-51.0); %Monocytes 13.2 % (0.0-10.0); %Neutrophils 62.7 % (42.0-75.0); Hemoglobin 13.4 g/dL (14.0-18.0); Mean Corpuscular HGB CONC 34.2 g/dL (32.0-36.0); Mean Corpuscular Hemoglobin 33.1 pg (27.0-31.0); Mean Corpuscular Volume 96.9 fL (78.0-98.0); Mean Platelet Volume 11.8 fL (7.4-10.4); Platelet Count 101 thou/uL (130-400); RBC Distribution Width 14.5 % (11.5-14.5); Red Blood Cell (RBC) Count 4.04 mill/uL (4.70-6.10); White Blood Cell (WBC) Count 5.7 thou/uL (4.8-10.8)
[2021-01-18] MEDS: Allopurinol 100 MG TAB PO SCH (08:51)
[2021-01-18] MEDS: Aspirin Chewable 81 MG TAB PO SCH (08:51)
[2021-01-18] MEDS: Tamsulosin HCl 0.4 MG CAP PO SCH (08:52)
[2021-01-18] MEDS: Azithromycin 250 MG TAB PO SCH (08:52)
[2021-01-18] MEDS: Carvedilol 3.125 MG TAB PO SCH ×2 (08:52→20:08)
[2021-01-18] MEDS: Clopidogrel Bisulfate 75 MG TAB PO SCH (08:53)
[2021-01-18] MEDS: Megestrol Acetate 40 MG TAB PO SCH ×2 (15:58→20:08)
[2021-01-18] MEDS: Famotidine/PF 20 mg/2ml Vial SLOW IVP SCH (20:08)
[2021-01-18] MEDS: Atorvastatin Calcium 40 MG TAB PO SCH (20:08)
[2021-01-18 20:32] LABS: Magnesium 2.1 mg/dL (1.6-2.6); Potassium 4.2 mmol/L (3.5-5.1)
[2021-01-19] MEDS: Clopidogrel Bisulfate 75 MG TAB PO SCH (08:40)
[2021-01-19] MEDS: Aspirin Chewable 81 MG TAB PO SCH (08:40)
[2021-01-19] MEDS: Tamsulosin HCl 0.4 MG CAP PO SCH (08:40)
[2021-01-19] MEDS: Carvedilol 3.125 MG TAB PO SCH (08:40)
[2021-01-19] MEDS: Megestrol Acetate 40 MG TAB PO SCH ×2 (08:41→15:12)
[2021-01-19] MEDS: Allopurinol 100 MG TAB PO SCH (08:41)
[2021-01-19 15:51] VITALS: BP 146/69; TEMP 98
== END 2021-01-19 16:47 | DRG 871 ==
LOC: ERS 11:25 → ERHOLD 17:19 → 2NO 01-14 13:11 → OBSVTOIN 01-15 08:05
PROVIDERS: ADMIT Internal Medicine; ATTEND Internal Medicine
PROC: 0W993ZZ Drainage of Right Pleural Cavity, Percutaneous Approach (ICD-10-PCS; principal; 2021-01-15)
PROC: 5A1D70Z Performance of Urinary Filtration, Intermittent, Less than 6 Hours Per Day (ICD-10-PCS; 2021-01-15)
DX: A41.9 Sepsis, unspecified organism (principal); Z20.822 Contact with and (suspected) exposure to COVID-19; Z66 Do not resuscitate; J18.9 Pneumonia, unspecified organism; G93.41 Metabolic encephalopathy; N18.6 End stage renal disease; I42.9 Cardiomyopathy, unspecified; J98.11 Atelectasis; N30.00 Acute cystitis without hematuria; I13.2 Hypertensive heart and chronic kidney disease with heart failure and with stage 5 chronic kidney disease, or end stage renal disease; I50.22 Chronic systolic (congestive) heart failure; D61.818 Other pancytopenia; J91.8 Pleural effusion in other conditions classified elsewhere; E83.42 Hypomagnesemia; E87.6 Hypokalemia; E78.5 Hyperlipidemia, unspecified; Z88.8 Allergy status to other drugs, medicaments and biological substances; Z79.82 Long term (current) use of aspirin; Z79.899 Other long term (current) drug therapy; Z79.02 Long term (current) use of antithrombotics/antiplatelets; Z85.46 Personal history of malignant neoplasm of prostate; Z99.2 Dependence on renal dialysis; Z86.73 Personal history of transient ischemic attack (TIA), and cerebral infarction without residual deficits
CPT/HCPCS: 36415; 51701; 70450; 71045; 80048; 80053; 81003; 81015; 82140; 82550; 82553; 83605; 83615; 83735; 83970; 84100; 84157; 84443; 84484; 85025; 85060; 87040; 87070; 87086; 87205; 88112; 88305; 89051; 90935; 93005; 96365; 96375; 96376; G0257; G0378; J0456; J0696; J1644; J3475; J7050; S0028; S0179; U0003; U0005

== ENCOUNTER 2021-01-27 07:35 | Emergency (ER) | payer MEDICARE, OTHER ==
[2021-01-27 08:54] LABS: ALT (SGPT) Less than 7 U/L (8-55); AST (SGOT) 10 U/L (5-34); Albumin 2.8 g/dL (3.4-4.8); Alkaline Phosphatase 67 U/L (40-110); Anion Gap 19 mmol/L (10-20); BUN (Urea Nitrogen) 50 mg/dL (8.4-25.7); Bilirubin, Total 1.3 mg/dL (0.2-1.2); Calc. Creatinine Clearance 0 mL/min (70-130); Carbon Dioxide 22 mmol/L (23-31); Chloride 101 mmol/L (98-107); Glucose 97 mg/dL (83-110); Protein, Total 5.8 g/dL (5.8-8.1); Sodium 138 mmol/L (136-145)
[2021-01-27 10:08] LABS: Bacteria/HPF 2+ HPF (None Seen); Bilirubin Negative (Negative); Blood, Urine 2+ (Negative); Clarity Turbid (Clear); Glucose, Urine (Dipstick) Normal (Negative); Ketone, Urine Negative (Negative); Leukocyte 75 Leu/uL (Negative); Nitrite Negative (Negative); Protein, Urine (Dipstick) 300 mg/dL (Neg-Trace); Specific Gravity, Urine 1.019 (1.002-1.036); Squamous Epithelial 0-3 HPF (0-3); Transitional Epithelial 0-3 HPF (None Seen); Urobilinogen Normal mg/dL (Less than 2); WBC/HPF 21-50 HPF (0-3)
== END 2021-01-27 10:29 ==
LOC: ERS 07:35
DX: I13.2 Hypertensive heart and chronic kidney disease with heart failure and with stage 5 chronic kidney disease, or end stage renal disease (principal); I50.9 Heart failure, unspecified; N18.6 End stage renal disease; I25.10 Atherosclerotic heart disease of native coronary artery without angina pectoris; E78.5 Hyperlipidemia, unspecified; Z86.73 Personal history of transient ischemic attack (TIA), and cerebral infarction without residual deficits; Z99.2 Dependence on renal dialysis; Z79.82 Long term (current) use of aspirin; Z79.02 Long term (current) use of antithrombotics/antiplatelets; Z79.899 Other long term (current) drug therapy
CPT/HCPCS: 80053; 81003; 81015; 99285

== ENCOUNTER 2021-02-17 08:40 | Emergency (ER) | payer MEDICARE, OTHER ==
[2021-02-17 09:50] LABS: ALT (SGPT) Less than 7 U/L (8-55); AST (SGOT) 9 U/L (5-34); Albumin 2.7 g/dL (3.4-4.8); Alkaline Phosphatase 54 U/L (40-110); Anion Gap 14 mmol/L (10-20); BUN (Urea Nitrogen) 42 mg/dL (8.4-25.7); Bilirubin, Total 0.8 mg/dL (0.2-1.2); Calc. Creatinine Clearance 0 mL/min (70-130); Calcium 8.8 mg/dL (7.8-10.44); Carbon Dioxide 23 mmol/L (23-31); Chloride 105 mmol/L (98-107); Glucose 87 mg/dL (83-110); Potassium 4.4 mmol/L (3.5-5.1); Protein, Total 5.7 g/dL (5.8-8.1); Sodium 138 mmol/L (136-145)
[2021-02-17 09:55] LABS: #Eosinphils 0.3 thou/uL (0.0-0.7); #Lymphocytes 1.3 thou/uL (1.20-3.40); #Monocytes 0.8 thou/uL (0.11-0.59); #Neutrophils 3.8 thou/uL (1.40-6.50); %Basophils 0.4 % (0.0-1.0); %Eosinophils 4.6 % (0.0-10.0); %Lymphocytes 21.3 % (21.0-51.0); %Monocytes 12.1 % (0.0-10.0); %Neutrophils 61.6 % (42.0-75.0); Hemoglobin 9.4 g/dL (14.0-18.0); Mean Corpuscular HGB CONC 32.9 g/dL (32.0-36.0); Mean Corpuscular Hemoglobin 32.1 pg (27.0-31.0); Mean Corpuscular Volume 97.7 fL (78.0-98.0); Mean Platelet Volume 9.9 fL (7.4-10.4); Platelet Count 111 thou/uL (130-400); RBC Distribution Width 14.6 % (11.5-14.5); Red Blood Cell (RBC) Count 2.93 mill/uL (4.70-6.10); White Blood Cell (WBC) Count 6.2 thou/uL (4.8-10.8)
== END 2021-02-17 10:30 ==
LOC: ERS 08:40
DX: N18.6 End stage renal disease (principal); D63.1 Anemia in chronic kidney disease; I50.9 Heart failure, unspecified; I73.9 Peripheral vascular disease, unspecified; I25.10 Atherosclerotic heart disease of native coronary artery without angina pectoris; E78.5 Hyperlipidemia, unspecified; Z99.2 Dependence on renal dialysis; Z85.46 Personal history of malignant neoplasm of prostate
CPT/HCPCS: 36415; 70450; 80053; 85025; 93005